=== PATIENT | female | born 1965 | race Caucasian/White ===

== ENCOUNTER → 2024-06-16 09:12 | Outpatient (REF) | payer OTHER, SELFPAY | LOC: RAD 09:12 | PROVIDERS: ATTENDING PHYSICIAN Physician Assistant Medical | DX: Z78.0 Asymptomatic menopausal state (principal) | CPT/HCPCS: 77080 ==

== ENCOUNTER → 2025-04-14 11:13 | Outpatient (REF) | payer OTHER, SELFPAY | LOC: WDC 11:13 | PROVIDERS: ATTENDING PHYSICIAN Nurse Practitioner Adult Health; FAMILY PHYSICIAN Physician Assistant Medical | DX: Z12.31 Encounter for screening mammogram for malignant neoplasm of breast (principal) | CPT/HCPCS: 77063; 77067 ==

== ENCOUNTER 2025-07-04 06:28 | Day surgery (SDC) | payer OTHER, SELFPAY ==
[2025-06-29 08:56] LABS: Hematocrit 42.3 % (37.0-47.0); Hemoglobin 13.9 g/dL (12.0-16.0); Mean Corp Hgb Conc. 32.9 g/dL (33.0-37.0); Mean Corpuscular Volume 89.4 fL (81.0-99.0); Platelet Count 209 10^3/uL (130-400); Red Cell Dist. Width 12.9 % (11.5-14.5)
[2025-06-29 09:51] LABS: ALT (SGPT) 14 U/L (0-35); AST (SGOT) 22 U/L (14-36); Albumin 4.5 g/dl (3.5-5.0); Alkaline Phosphatase 74 U/L (38-126); Blood Urea Nitrogen 11 mg/dl (7-17); Calcium 9.5 mg/dl (8.4-10.2); Carbon Dioxide 28 mmol/L (22-30); Chloride 105 mmol/L (98-107); Glucose 93 mg/dl (70-99); Potassium 4.7 mmol/L (3.5-5.1); Sodium 140 mmol/L (135-145); Total Protein 7.4 g/dl (6.3-8.2); eGFR > 60.00
[2025-06-29 14:14] VITALS: BMI 21.7
[2025-07-04] VITALS (11 sets, daily range): BP systolic 95–124; BP diastolic 51–71; BMI 21.7
[2025-07-04] MEDS: TYLENOL 1000 MG PO (11:48)
[2025-07-04] MEDS: NORMOSOL-R/PLASMALYTE-A 1000 IV (11:50)
[2025-07-04] MEDS: EMEND 40 MG PO (11:53)
[2025-07-04] MEDS: TRANSDERM-SCOP 1 PATCH TRANSDERM (11:53)
[2025-07-04] MEDS: DILAUDID 0.5 MG IV (13:59)
[2025-07-04] MEDS: DILAUDID 0.25 MG IV (14:16)
[2025-07-04] MEDS: ZOFRAN 4 MG IV (16:04)
== END 2025-07-04 17:09 | disposition home or self-care (01) ==
LOC: SDS 06:28
PROVIDERS: ATTENDING PHYSICIAN Surgery; FAMILY PHYSICIAN Physician Assistant Medical
DX: K80.10 Calculus of gallbladder with chronic cholecystitis without obstruction (principal)
CPT/HCPCS: 47563; 36415; 74300; 76000; 80053; 85027; 88304; 93005